=== PATIENT | female | born 1965 | race Two or more races ===

== ENCOUNTER → 2019-07-01 | Outpatient (CLI) | payer OTHER | END | disposition home or self-care (01) | LOC: TOM 08:06 | DX: R19.00 Intra-abdominal and pelvic swelling, mass and lump, unspecified site (principal) ==

== ENCOUNTER 2020-02-20 11:41 | Outpatient (CLI) | payer OTHER | END 2020-02-20 11:51 | disposition home or self-care (01) | LOC: RAD 11:41 | PROVIDERS: ATTEND Internal Medicine | DX: I35.0 Nonrheumatic aortic (valve) stenosis (principal) ==

== ENCOUNTER 2021-05-05 19:17 | Emergency (ER) | payer OTHER ==
[~2021-05-05] VITALS: Ht 167.6 cm; Wt 106.6 kg
[2021-05-05] MEDS ORDERED: LIPITOR20 MG PO (19:32)
[2021-05-05] MEDS ORDERED: TOPROL XL50 M1 PO (19:32)
[2021-05-05] MEDS ORDERED: PRILOSEC OTC20 MG PO (19:32)
[2021-05-05] MEDS ORDERED: LOSARTAN-HCTZ1 EAC1 PO (19:32)
[2021-05-05] MEDS ORDERED: MAGNESIUM200 MG (19:33)
[2021-05-05] MEDS ORDERED: ORTHO DF 3,7751 EACH PO (19:33)
[2021-05-05] MEDS ORDERED: ORPHENADRINE C100 MG PO (21:54)
== END 2021-05-06 00:49 | disposition home or self-care (01) ==
LOC: ER 19:17
DX: S09.93XA Unspecified injury of face, initial encounter (principal); M54.50 Low back pain, unspecified; W18.30XA Fall on same level, unspecified, initial encounter